=== PATIENT | female | born 1940 | race Two or more races ===

== ENCOUNTER 2021-09-03 17:30 | Emergency (ER) | payer MEDICARE, OTHER ==
[~2021-09-03] VITALS: Ht 154.9 cm; Wt 65.3 kg
--- NOTE | 2021-09-03 17:42 | NUR ---
The patient is [id number], from home, c/o left knee, shoulder and and face pain s/p tripped and fall, no loc, 06/24 ps, hit her face on a tile floor. The patient is alert and oriented x3. In room air and denies SOB. Respiration regular and unlabored. Warm blanket provided for comfort. Will continue to monitor the patient.
[2021-09-03] MEDS ORDERED: HYDROMORPHONE INJ 2 MG/ML DISP.SYRIN IV ONE (18:30)
[2021-09-03] MEDS ORDERED: ONDANSETRON HCL/PF 4 MG/2 ML VIAL IVP ONE (18:30)
--- NOTE | 2021-09-03 18:32 | NUR ---
PT TAKEN TO CT VIA [facility]
[2021-09-03] MEDS ORDERED: ONDANSETRON HCL/PF 4 MG/2 ML VIAL ONE (18:59)
[2021-09-03] MEDS ORDERED: HYDROMORPHONE INJ 2 MG/ML DISP.SYRIN ONE (18:59)
[2021-09-03] MEDS ORDERED: HYDR-3972 PO (19:39)
--- NOTE | 2021-09-03 19:54 | NUR ---
[facility] ETA 45-60 MINUTES.
--- NOTE | 2021-09-03 20:04 | NUR ---
SHOULDER SLING + DIGNA WRAP APPLIED.
--- NOTE | 2021-09-03 20:29 | NUR ---
Patient discharged to home in stable condition. RX Written and verbal after care instructions given. Patient AND DAUGHTER verbalizes understanding of instruction. PT DC TO HOME VIA AMBULANCE.
[2021-09-03 20:30] VITALS: BP 154/89
== END 2021-09-03 20:30 | disposition home or self-care (01) ==
LOC: ER 17:35
DX: S22.42XA Multiple fractures of ribs, left side, initial encounter for closed fracture (principal); S42.255A Nondisplaced fracture of greater tuberosity of left humerus, initial encounter for closed fracture; S00.83XA Contusion of other part of head, initial encounter; S80.02XA Contusion of left knee, initial encounter; I12.0 Hypertensive chronic kidney disease with stage 5 chronic kidney disease or end stage renal disease; E11.22 Type 2 diabetes mellitus with diabetic chronic kidney disease; N18.6 End stage renal disease; Z99.2 Dependence on renal dialysis; W01.0XXA Fall on same level from slipping, tripping and stumbling without subsequent striking against object, initial encounter; Y93.89 Activity, other specified; Y92.89 Other specified places as the place of occurrence of the external cause; Y99.8 Other external cause status
CPT/HCPCS: 70450; 70486; 71250; 72125; 72170; 73030; 73564; 96374; 96375; 99284; J1170; J2405